=== PATIENT | female | born 1995 | race Caucasian/White ===

== ENCOUNTER 2017-04-17 06:44 | Day surgery (SDC) | payer BC ==
[~2017-04-17] VITALS: Ht 172.7 cm; Wt 56.7 kg
--- NOTE | ~2017-04-17 | OP ---
Record Of Operation [facility] [address] [place]. [address] NAME: CITLALY BARAJAS : 89 STATUS : [facility]#: [id number] AGE: 21 ADM/REG DATE : 04/17/17 MR#: [id number] REPORT SERV DATE: 04/20/17 DICTATED BY: CHRISSIE SHARIF DATE: 04/20/17 REPORT STATUS : Draft TRANSCRIBED BY: FORTUNATO DATE: 04/20/17 DATE OF PROCEDURE: 04/17/2017 PREOPERATIVE DIAGNOSIS: History of repeated nasal trauma with acquired deformity and obstructed breathing pattern. POSTOPERATIVE DIAGNOSIS: History of repeated nasal trauma with acquired deformity and obstructed breathing pattern. PROCEDURE: 1. Functional septoplasty. 2. Vestibular stenosis correction with acid conditioner grafting. 3. Cosmetic rhinoplasty. STOCK GRADER: Jannie. ANESTHESIA: General endotracheal anesthesia with 9 mL of 1% lidocaine with 1:100,000 epinephrine. ESTIMATED BLOOD LOSS: Less than 10 mL. COMPLICATIONS: None immediate. FINDINGS: Left nasal bone fractured into multiple segments and very thin due to previous trauma. SPECIMENS: None. COMPLICATIONS: None. INDICATION FOR PROCEDURE: This is a 21-year-old female, who is involved in competitive cheerleading sports. She has sustained multiple direct blows to the facial area resulting in fracture of the nasal bones as well as septal deviation. With these repeated injury, she has developed significant obstructed breathing patterns with nose having acquired deformity of shifting to her right side and a collapse of the left nasal bone area. Because of this, she has multiple sinus infections, snoring, and allergies. She is interested in functional septoplasty today as well as reconstruction of the bony nasal framework for her acquired deformity and breathing issues. In addition, she has excess dorsal hump as well as wide nasal vault and tip and she desires cosmetic refinement of them as well. The risks, including but not limited to, bleeding, infection, asymmetries, bone healing issues, need for revision surgeries, pain etc., as well as the benefits and alternatives were discussed with her and her family in the preoperative setting and informed consent was obtained. The patient agreed to proceed as outlined today. PROCEDURE NOTE: The patient was identified in the preoperative holding area where SCDs and antibiotics were initiated. Appropriate markings were made on the nasal area and the Record Of Operation [facility] [address] [place]. [address] NAME: CITLALY BARAJAS : 89 STATUS : [facility] PAT#: [id number] AGE: 21 ADM/REG DATE : 04/17/17 MR#: [id number] REPORT SERV DATE: 04/20/17 DICTATED BY: CHRISSIE SHARIF DATE: 04/20/17 REPORT STATUS : Draft TRANSCRIBED BY: FORTUNATO DATE: 04/20/17 operative plan discussed and reconfirmed with the patient. She was then transported to the operating room where she was laid supine on the operating room table with all dependent areas adequately padded and the arms tucked. After smooth induction of general endotracheal anesthesia, the table was turned 90 degrees and three Afrin-soaked pledgets were instilled into each nostril. I then instilled 5 mL of 1% lidocaine with 1:100,000 epinephrine in the nasal area excluding the septum. The patient's face area was then prepped and draped in standard surgical fashion. A throat pack was placed and the pledgets were removed from intranasal region. Using a stairstep columellar incision, it was marked and created with a #15 blade scalpel. This was extended into a marginal incision in the nasal vestibule area. Meticulous dissection was then undertaken with curved and angled scissors as well as scalpel. The soft tissue was then elevated from the lower lateral cartilages followed by the upper lateral cartilages and onto the area of the bony segment. Once the bony nasal bones were reached, a Bad Axe elevator was utilized to further elevate the soft tissue from it. After the soft-tissue envelope had been elevated, attention was then focused to the dorsal hump area. Using a downward rasp, the bony segment was reduced in an incremental fashion. The skin was redraped many times during this part to ensure that over-resection had not been performed. After reduction of the bony component, she still has a slight elevation from the upper lateral cartilages and septum that was present. Therefore, using a #15 blade scalpel, the upper lateral cartilages were from the septum and the septum was taken down about 2 mm sharply using the #15 blade scalpel. Of note, her upper lateral cartilages were extremely small and flimsy in appearance and about half the size and strength of what you would normally anticipate. This made them very difficult to actually maintain any structures and therefore they were not taken down or able to be used as acid conditioner grafts. Any further reduction at this point would have resulted in significant saddle nose deformity or open roof deformity. It seemed as though she had a good reduction in overall size of the dorsal hump and nice flattening of the area at this time. Thus, it was felt this was pretty much all I can cosmetically do to the address the dorsal hump. With the cosmetic dorsal hump reduction completed, the injured portion then continued. This consisted of freeing the lower lateral cartilages from the inferior aspect of the septum using a #15 blade scalpel. The septum was then identified and elevation of mucoperichondrial tissue using a Sampson elevator and scalpel took place after scoring. The septum itself was fairly thin and pliable in nature without significant strength, but there was obvious deviation. There was one small rent that was made in the mucosa on the patient's left side because of the previous trauma and scarring, which were eventually repaired with interrupted 4-0 chromic sutures. After tedious dissection so as not to create any additional mucosal defects, the septum was eventually freed up inferior down to the level of the underlying bone and posteriorly to the bony aspect as well. She did have a spur on the posterior-superior aspect of the septum, which was eventually taken off using nippers. With that in mind, after the septum was free, I measured all 12 mm on the dorsal and caudal aspect of the septum to be retained as the L-strut graft and marked this with a pen. The incision was then made into the remaining septal tissue with a #15 blade scalpel for removal. A swivel knife was used for transection of the inferior-most and posterior- most aspect down to the bony segment without difficulty. As mentioned previously, I had used nippers to take down the bony store that was posteriorly and superiorly located. After removal of all the tissue, cotton tip applicator was placed into the nasal cavity to ensure adequate patency. It appears that this was the case, however, though one side with a little bit tighter, and because of this deformities, I went ahead and did acid conditioner grafts to both Record Of Operation [facility] [id number] [place]. [address] NAME: CITLALY BARAJAS : 89 STATUS : [facility]#: [id number] AGE: 21 ADM/REG DATE : 04/17/17 MR#: [id number] REPORT SERV DATE: 04/20/17 DICTATED BY: CHRISSIE SHARIF DATE: 04/20/17 REPORT STATUS : Draft TRANSCRIBED BY: FORTUNATO DATE: 04/20/17 the right and left side. To do so, the harvested septal cartilage was cut into with a #15 blade scalpel into about a 2-3 mm wide graft that was 2 cm long. This was anchored to the upper lateral cartilages and the septum using interrupted 5-0 PDS sutures in a mattress- style fashion. After the acid conditioner grafts were completed, she had good patency, so we needed to reduce the size of the nasal wall and reposition her left nasal bone that was clearly out of place. To do so, I performed a medial and lateral osteotomy of the right nasal bone, which allowed it to rotate in very nicely in infracture. However, with just palpation of the left nasal bone because of the history of the fracture and the thinness of it, it essentially broke in the middle aspect. Therefore, I performed a lateral osteotomy just sort of kicks at those segments back out and realign them into more natural appearance. This site was pretty unstable, therefore, it is going to be necessary to do internal and external splinting to try to hold it into place at little bit more securely. Eventually, the bones were then manipulated so as to not get the nose deviate to provide anymore and into a more central alignment with some slight narrowing. After the osteotomies were performed, we then moved to the cosmetic portion again in the case, which consisted of tip definition. To do so, I started by performing a cephalic trim removing about 4 mm of the medial aspect of the lower lateral cartilage and retaining about 5 mm in width on each side. She had very large lower lateral cartilages to begin, so this was very good for narrowing the tip of the nose. However, I still need to do some suture modifications, so domal sutures to themselves and also between each other were placed in multiple configurations to try to narrowing the tip even more. Because of the thick nature of the lobule and tip of the skin, we still could not get good definition, so I went ahead and thinned out some of the fibrofatty tissue from the underside of it sharply with scissors, but not too much so as to devascularize it. This still did not provide enough tip definition, so I went ahead and put a shield graft on the tip, which was configured from the septal cartilage that was harvested. This was anchored using a 5-0 PDS suture in a mattress-style fashion to the medial cristina of both lower lateral cartilages. At this time, it seemed that we had very good tip definition without significantly changing the overall location, etc. Throughout the procedure, the skin had been redraped multiple times to ensure that cosmetically the nose would have the best appearance as possible without overly drastic changes as that was not what the patient was going for. Because of the poor support of the medial crura of the lower lateral cartilages, I decided to place a crural strut graft as well, which was about 15 mm in length and about 3 mm in width. This was anchored between the lower lateral cartilages using chromic sutures. At the completion of all of these maneuvers, I felt that we had adequate correction of the vestibular stenosis and breathing obstruction as well as refinement of the nasal tip and takedown of the dorsum and narrowing of the middle vault and dorsal aesthetic lines. Therefore, we cleaned off everything and I reapproximated the stairstep columellar incision with interrupted 6-0 Prolene sutures. This was followed by reapproximation of the marginal intracartilaginous incision using interrupted and running 4- 0 chromic suture. Internal splints were then lubricated and instilled and anchored with an interrupted silk suture to the skin. An external Ida-type splint was fashioned after laying down multiple Steri-Strips to the area. The patient already had swelling and bruising starting at the end of the case. She, however, tolerated the procedure well without any sign of complication. She was awakened, extubated, and transported to the postanesthesia care unit where she was recovered without any initial sign of difficulty. Sponge and instrument counts were correct and verified. Record Of Operation [facility] [address] [place]. [address] NAME: CITLALY BARAJAS : 89 STATUS : [facility] PAT#: [id number] AGE: 21 ADM/REG DATE : 04/17/17 MR#: [id number] REPORT SERV DATE: 04/20/17 DICTATED BY: CHRISSIE SHARIF DATE: 04/20/17 REPORT STATUS : Draft TRANSCRIBED BY: MODL DATE: 04/20/17 CMJuan/MODL Chrissie Sharif MD / [id number] CC: Chrissie Sharif MD NO PCP
[~2017-04-17 06:44] MED LIST: VENTOLIN HFA
== END 2017-04-17 17:02 | disposition home or self-care (01) ==
LOC: SDC 06:44 → MSC 07:45 → SDC 17:02
PROVIDERS: Plastic Surgery
PROC: 09SM0ZZ Reposition Nasal Septum, Open Approach (ICD-10-PCS; principal; 2017-04-17 07:45)
DX: M95.0 Acquired deformity of nose (principal); J34.2 Deviated nasal septum; D22.39 Melanocytic nevi of other parts of face; J45.909 Unspecified asthma, uncomplicated; M54.5 Low back pain
CPT/HCPCS: 84703; A9270-GY; J0690; J1170; J2250; J2405; J2550; J3010

== ENCOUNTER 2017-04-17 16:38 | Day surgery (SDC) | payer OTHER | END 2017-04-17 23:59 | disposition home or self-care (01) | LOC: SDC 16:38 → zsplitMop 16:38 → MSC 16:38 → EDSTATUS 05-16 12:11 | PROC: 09UK07Z Supplement Nasal Mucosa and Soft Tissue with Autologous Tissue Substitute, Open Approach (ICD-10-PCS; principal; 2017-04-17) | DX: Z41.1 Encounter for cosmetic surgery (principal) ==